=== PATIENT | female | born 1935 | race Caucasian/White ===

== ENCOUNTER 2018-05-12 10:22 | Inpatient (IN) | payer MEDICARE, BC ==
[~2018-05-12 10:22] MED LIST: GLYCOPYRROLATE 0.4 MG INJ; NEOSTIGMINE 3 MG/3 ML SYRINGE; PROPOFOL 200 MG INJ; ROCURONIUM 50 MG INJ
[2018-05-12] MEDS: LACTATED RINGER'S 1,000 ML IV* (11:18)
[2018-05-12] MEDS: ACETAMINOPHEN 1000MG/100ML IV 100 ML IVPB (11:18)
[2018-05-12] MEDS: DEXAMETHASONE 4 MG/ML 1 ML INJ IV (11:18)
[2018-05-12] MEDS ORDERED: ACETAMINOPHEN 500 MG TAB PO (11:30)
[2018-05-12] MEDS: CEFAZOLIN 2 GM/50 ML (PMX) 50 ML IVPB (11:30)
[2018-05-12] MEDS: TRANEXAMIC ACID 1,000 MG in SOD CHLORIDE 0.9% 100 ML IVPB (11:30)
[2018-05-12] MEDS ORDERED: FENTAnyl 50 MCG/ML VIAL (15:40)
[2018-05-12] MEDS ORDERED: MIDAZOLAM 1 MG/ML 2 ML INJ (15:40)
[2018-05-12] MEDS ORDERED: ROPIVACAINE 0.2% 20 ML VIAL (15:40)
[2018-05-12] MEDS ORDERED: hydrALAzine 20 MG INJ IV (16:00)
[2018-05-12] MEDS ORDERED: LABETALOL HCL 20MG INJ IV (16:00)
[2018-05-12] MEDS ORDERED: HYDROmorphONE 1 MG/5 ML IV SYRINGE IV ×3 (16:00)
[2018-05-12] MEDS ORDERED: HYDROCORTISONE 100 MG INJ (16:08)
[2018-05-12] MEDS ORDERED: ONDANSETRON 4 MG INJ (16:09)
[2018-05-12] MEDS ORDERED: CEFAZOLIN 1 GM INJ (16:10)
[2018-05-12] MEDS ORDERED: SODIUM CL BACTERIOSTATIC 30 ML INJ (16:34)
[2018-05-12] MEDS: BACITRACIN 50000 UNITS INJ IRR (16:43)
[2018-05-12] MEDS: POLYMYXIN B 500000 UNIT INJ (16:43)
[2018-05-12] MEDS ORDERED: HYDROmorphONE 2 MG/ML SYG (16:48)
[2018-05-12] MEDS ORDERED: EPHEDrine 25 MG/5 ML SYG (17:58)
[2018-05-12] MEDS ORDERED: MAGNESIUM HYDROXIDE 30ML CUP PO (18:00)
[2018-05-12] MEDS ORDERED: HYDROCODONE/APAP (5/325) TAB PO (18:00)
[2018-05-12] MEDS ORDERED: SUGAMMADEX SODIUM 200 MG/2 ML VIAL IV (18:10)
[2018-05-12] MEDS: CEFAZOLIN 1 GM/50 ML (PMX) 50 ML IVPB (18:32)
[2018-05-12] MEDS: DIPHENHYDRAMINE 50 MG INJ IV (18:53)
[2018-05-12] MEDS: ONDANSETRON 4 MG INJ IV (18:53)
[2018-05-12] MEDS: MEPERIDINE 25 MG INJ IV (18:53)
[2018-05-12] MEDS: HYDROCODONE/APAP (10/325) TAB PO (23:38)
[2018-05-13] MEDS: CEFAZOLIN 1 GM/50 ML (PMX) 50 ML IVPB ×2 (01:54→10:14)
[2018-05-13] MEDS: LACTATED RINGER'S 1,000 ML IV ×2 (03:21→03:41)
[2018-05-13] MEDS: HYDROCODONE/APAP (10/325) TAB PO ×3 (03:30→12:16)
[2018-05-13] MEDS: ASPIRIN 81 MG TAB PO (10:14)
== END 2018-05-13 13:25 | disposition home health service (06) | DRG 483 ==
LOC: REC 10:22 → MS1 19:44
PROC: 0RRK0JZ Replacement of Left Shoulder Joint with Synthetic Substitute, Open Approach (ICD-10-PCS; principal; 2018-05-12 15:57)
DX: M19.012 Primary osteoarthritis, left shoulder (principal); I10 Essential (primary) hypertension; K21.9 Gastro-esophageal reflux disease without esophagitis; M35.3 Polymyalgia rheumatica; E78.5 Hyperlipidemia, unspecified
CPT/HCPCS: 71045; 86850; 86900; 86901; 87081; 88304; 88311; 97161; 97167

== ENCOUNTER 2018-09-22 08:01 | Observation (INO) | payer MEDICARE, BC ==
[2018-09-22] MEDS: LACTATED RINGER'S 1,000 ML IV ×3 (09:38→15:52)
[2018-09-22] MEDS: DEXAMETHASONE 4 MG/ML 1 ML INJ IV (09:40)
[2018-09-22] MEDS ORDERED: MIDAZOLAM 1 MG/ML 2 ML INJ (11:22)
[2018-09-22] MEDS ORDERED: FENTAnyl 50 MCG/ML VIAL (11:22)
[2018-09-22] MEDS ORDERED: DIPHENHYDRAMINE 50 MG INJ IV (11:30)
[2018-09-22] MEDS ORDERED: FENTAnyl 50 MCG/ML VIAL IV (11:30)
[2018-09-22] MEDS ORDERED: hydrALAzine 20 MG INJ IV (11:30)
[2018-09-22] MEDS ORDERED: EPHEDrine 25 MG/5 ML SYG IV (11:30)
[2018-09-22] MEDS ORDERED: LABETALOL HCL 20MG INJ IV (11:30)
[2018-09-22] MEDS ORDERED: HYDROmorphONE 1 MG/5 ML IV SYRINGE IV (11:30)
[2018-09-22] MEDS ORDERED: MEPERIDINE 25 MG INJ IV (11:30)
[2018-09-22] MEDS ORDERED: CEFAZOLIN 1 GM INJ (11:43)
[2018-09-22] MEDS ORDERED: TRANEXAMIC ACID 1GM/100ML(PMX) 100 ML ×2 (11:43→12:51)
[2018-09-22] MEDS ORDERED: FAMOTIDINE 20 MG INJ (11:51)
[2018-09-22] MEDS ORDERED: ONDANSETRON 4 MG INJ (11:51)
[2018-09-22] MEDS: CEFAZOLIN 2 GM/50 ML (PMX) 50 ML IVPB ×3 (12:00→22:18)
[2018-09-22] MEDS: POLYMYXIN B 500000 UNIT INJ (12:07)
[2018-09-22] MEDS: TRANEXAMIC ACID 1GM/100ML(PMX) 100 ML PRE-OP X1 IVPB (12:07)
[2018-09-22] MEDS: BACITRACIN 50000 UNITS INJ (12:07)
[2018-09-22] MEDS ORDERED: PROPOFOL 20 ML (12:17)
[2018-09-22] MEDS ORDERED: ROPIVACAINE 0.2% 20 ML VIAL (12:59)
[2018-09-22] MEDS: TRANEXAMIC ACID 1GM/100ML(PMX) 100 ML INTRA-OP X1 IVPB (13:02)
[2018-09-22] MEDS: ONDANSETRON 4 MG INJ IV ×3 (13:30→19:30)
[2018-09-22] MEDS ORDERED: NALOXONE (0.4 MG/ML) INJ IV (13:30)
[2018-09-22] MEDS ORDERED: NACL 0.9% 3 ML SYG IV (13:30)
[2018-09-22] MEDS ORDERED: MAGNESIUM HYDROXIDE 30ML CUP PO (13:30)
[2018-09-22] MEDS: HYDROmorphONE 1 MG/5 ML IV SYRINGE IV ×2 (15:11→15:27)
[2018-09-22] MEDS: KETOROLAC 15 MG INJ IV ×2 (15:52→22:13)
[2018-09-22] MEDS: oxyCODONE 5 MG TAB PO (18:33)
[2018-09-22] MEDS: CITALOPRAM 20 MG TAB PO (20:50)
[2018-09-22] MEDS: ATORVASTATIN 10 MG TAB PO (20:50)
[2018-09-22] MEDS: traZODone 50 MG TAB PO (20:51)
[2018-09-22] MEDS: AMLODIPINE 5 MG TAB PO (20:51)
[2018-09-22] MEDS: BENAZEPRIL 20 MG TAB PO (20:53)
[2018-09-22] MEDS: GABAPENTIN 100 MG CAP PO (20:54)
[2018-09-22] MEDS: HYDROmorphONE 1 MG/ML SYG IV (23:58)
[2018-09-23] MEDS: ONDANSETRON 4 MG INJ IV ×2 (01:30→09:21)
[2018-09-23] MEDS: LACTATED RINGER'S 1,000 ML IV (01:44)
[2018-09-23] MEDS: CEFAZOLIN 2 GM/50 ML (PMX) 50 ML IVPB (05:10)
[2018-09-23] MEDS: oxyCODONE 5 MG TAB PO ×2 (05:13→10:44)
[2018-09-23 05:39] LABS: ADD MAN DIFF? NO
[2018-09-23 05:48] LABS: WHITE BLOOD COUNT 11.2 10^3/ul (4.8-10.8)
[2018-09-23 05:48] LABS: BASOPHILS % 0.2 % (0.0-2.0); EOSINOPHILS % 0.1 % (0.0-7.0); HEMATOCRIT 30.1 % (37.0-47.0); HEMOGLOBIN 9.9 g/dl (12.0-16.0); LYMPHOCYTES % 8.9 % (15.0-51.0); MEAN CORPUSCULAR HEMOGLOBIN 30.7 pg (29.0-33.0); MEAN CORPUSCULAR HGB CONC 32.9 g/dl (32.0-37.0); MEAN CORPUSCULAR VOLUME 93.5 fl (82.0-101.0); MEAN PLATELET VOLUME 10.3 fl (7.4-10.4); MONOCYTE # 0.9 10^3/ul (0.3-0.9); MONOCYTES % 8.1 % (0.0-11.0); NEUTROPHIL # 9.2 10^3/ul (1.6-7.5); NEUTROPHILS % 82.1 % (39.0-77.0); PLATELET COUNT 168 10^3/UL (140-415); RED BLOOD COUNT 3.22 10^6/ul (4.20-5.40); RED CELL DISTRIBUTION WIDTH 13.4 % (11.5-14.5)
[2018-09-23 06:11] LABS: ANION GAP 6 (5-13); BLOOD UREA NITROGEN 16 mg/dl (7-20); CALCIUM 8.2 mg/dl (8.4-10.2); CARBON DIOXIDE 29 mmol/L (21-31); CHLORIDE 105 mmol/L (97-110); CREATININE 0.87 mg/dl (0.44-1.00); GLUCOSE 123 mg/dl (70-220); POTASSIUM 4.5 mmol/L (3.5-5.1); SODIUM 140 mmol/L (135-144)
[2018-09-23] MEDS ORDERED: ASPIRIN (EC) 81 MG TAB PO (09:00)
[2018-09-23] MEDS ORDERED: NON-FORMULARY/PATIENT OWN MED (Omeprazole* 20 MG) PO (09:00)
[2018-09-23] MEDS: ASPIRIN (EC) 81 MG TAB PO (09:17)
[2018-09-23] MEDS: ESTRADIOL 1 MG TAB PO (09:19)
[2018-09-23] MEDS: GABAPENTIN 100 MG CAP PO ×2 (09:20→12:28)
[2018-09-23] MEDS: CELECOXIB 100 MG CAP PO (09:20)
[2018-09-23] MEDS: BENAZEPRIL 20 MG TAB PO (09:20)
[2018-09-23] MEDS: DOCUSATE SODIUM 100 MG CAP PO (09:20)
[2018-09-23] MEDS: predniSONE 1 MG TAB PO (09:25)
[2018-09-23] MEDS: CYANOCOBALAMIN 500 MCG TAB PO (10:43)
[2018-09-24] MEDS ORDERED: PANTOPRAZOLE (EC) 40 MG TAB PO (06:00)
== END 2018-09-23 15:25 | disposition home or self-care (01) ==
LOC: SDS 08:01 → REC 13:18 → MS1 15:43
DX: M17.12 Unilateral primary osteoarthritis, left knee (principal); I10 Essential (primary) hypertension; E78.5 Hyperlipidemia, unspecified; K21.9 Gastro-esophageal reflux disease without esophagitis; M35.3 Polymyalgia rheumatica; Z79.82 Long term (current) use of aspirin
CPT/HCPCS: 27447; 73560; 80048; 85025; 86850; 86900; 86901; 87081; 88304; 88311; 97116; 97161; 97167; 97530; 99217